=== PATIENT | female | born 1970 | race Caucasian/White ===

== ENCOUNTER → 2019-12-04 | Outpatient (CLI) | payer OTHER ==
[~2019-12-04] MED LIST: ALPR.5 PO
== END ==
LOC: LAB 15:39 → LAB SHORT 15:39
DX: J02.9 Acute pharyngitis, unspecified (principal)
CPT/HCPCS: 87081

== ENCOUNTER 2020-06-30 08:35 | Day surgery (SDC) | payer OTHER ==
[~2020-06-30] VITALS: Ht 160 cm; Wt 73.8 kg
== END 2020-06-30 10:31 | disposition home or self-care (01) ==
LOC: ORSCSDS 08:35
PROVIDERS: Student in an Organized Health Care Education/Training Program
PROC: 0DBN8ZX Excision of Sigmoid Colon, Via Natural or Artificial Opening Endoscopic, Diagnostic (ICD-10-PCS; principal; 2020-06-30 09:45)
PROC: 0DBK8ZX Excision of Ascending Colon, Via Natural or Artificial Opening Endoscopic, Diagnostic (ICD-10-PCS; principal; 2020-06-30 09:45)
PROC: 0DBE8ZX Excision of Large Intestine, Via Natural or Artificial Opening Endoscopic, Diagnostic (ICD-10-PCS; principal; 2020-06-30 09:45)
DX: R19.4 Change in bowel habit (principal); R10.84 Generalized abdominal pain; K52.9 Noninfective gastroenteritis and colitis, unspecified; K63.89 Other specified diseases of intestine; D12.2 Benign neoplasm of ascending colon; K63.5 Polyp of colon; K64.8 Other hemorrhoids; Z87.891 Personal history of nicotine dependence; Z79.899 Other long term (current) drug therapy
CPT/HCPCS: 88305; J2704; J7120

== ENCOUNTER 2022-04-25 11:10 | Emergency (ER) | payer OTHER ==
[~2022-04-25] VITALS: Ht 160 cm; Wt 79.4 kg
[2022-04-25 12:05] LABS: BASOPHILS ABSOLUTE AUTO 0.03 K/mm3 (0.00-0.23); BASOPHILS PERCENT AUTO 0 % (0-2); EOSINOPHILS ABSOLUTE AUTO 0.13 K/mm3 (0.00-0.68); EOSINOPHILS PERCENT AUTO 1 % (0-6); Hematocrit 41.9 % (33.0-51.0); Hemoglobin 14.3 g/dL (11.5-16.0); IMMATURE GRAN ABSOLUTE AUTO 0.05 K/mm3 (0.00-0.10); IMMATURE GRAN PERCENT AUTO 0 % (0-1); LYMPHOCYTES ABSOLUTE AUTO 2.86 K/mm3 (0.84-5.20); LYMPHOCYTES PERCENT AUTO 23 % (21-46); MONOCYTES ABSOLUTE AUTO 0.46 K/mm3 (0.16-1.47); MONOCYTES PERCENT AUTO 4 % (4-13); Mean Corpuscular HGB 31.4 pg (26.0-34.0); Mean Corpuscular HGB Conc 34.1 g/dL (31.5-36.5); Mean Corpuscular Volume 92 fL (80-100); Mean Platelet Volume 9.1 fL (9.1-12.4); NEUTROPHILS PERCENT AUTO 71 % (41-73); Platelet Count 251 K/mm3 (150-400); RDW Coefficient Variation 12.3 % (11.7-14.2); RDW Standard Deviation 41.8 fL (35.1-46.3); Red Blood Cell Count 4.55 M/mm3 (3.80-5.20); White Blood Cell Count 12.23 K/mm3 (4.00-11.30)
[2022-04-25 12:22] LABS: Bilirubin, Total 0.5 mg/dL (0.1-1.0); Bun/Creatinine Ratio 24.9 (12.0-20.0); Calcium, Blood 9.6 mg/dL (8.5-10.1); Creatinine, Blood 0.68 mg/dL (0.40-1.00); Potassium, Blood 3.7 mmol/L (3.5-5.5)
== END 2022-04-25 14:40 | disposition left against medical advice (07) ==
LOC: ER 11:10
PROVIDERS: Physician Assistant
DX: R11.2 Nausea with vomiting, unspecified (principal); Z79.899 Other long term (current) drug therapy; Z53.21 Procedure and treatment not carried out due to patient leaving prior to being seen by health care provider
CPT/HCPCS: 36415; 80053; 85025; J2405

== ENCOUNTER 2023-03-23 09:31 | Day surgery (SDC) | payer OTHER ==
[~2023-03-23] VITALS: Ht 160 cm; Wt 69.2 kg
--- NOTE | 2023-03-23 11:30 | NUR ---
03/23/23 1130 Gala Jimenez I&O CATH AT BEGINNING OF PROCEDURE BY DEEJAY,RN 75ML OUTPUT
--- NOTE | 2023-03-23 12:30 | NUR ---
03/23/23 1230 SARA CORTÉS IV REMOVED BY RN EJP,CU[place]HTEM[place] INTACT, SITE WNL, PT TOLERATED PROCEDURE WELL.
[2023-03-23 12:34] VITALS: BP 116/66
== END 2023-03-23 12:36 | disposition home or self-care (01) ==
LOC: ORSCSDS 09:31
PROVIDERS: Obstetrics & Gynecology
PROC: 0UBC7ZX Excision of Cervix, Via Natural or Artificial Opening, Diagnostic (ICD-10-PCS; principal; 2023-03-23 11:00)
DX: D06.0 Carcinoma in situ of endocervix (principal)
CPT/HCPCS: J0171; J0690; J1100; J2250; J2405; J2704; J2795; J3010; J7120

== ENCOUNTER 2024-01-15 06:25 | Day surgery (SDC) | payer OTHER ==
[2024-01-15] VITALS (20 sets, daily range): BP systolic 100–133; BP diastolic 64–113
[~2024-01-15] VITALS: Ht 152.4 cm; Wt 77.1 kg
[~2024-01-15 06:25] MED LIST changes: +Phentermine HCl15 MG PO
[2024-01-15] MEDS ORDERED: Lactated Ringer's 1,000 ML IV SCH ×2 (06:30→09:50)
--- NOTE | 2024-01-15 07:08 | NUR ---
Ambulatory in Day Surgery History, Chart, Medications and Allergies reviewed before start of procedure.Patient confirms NPO status and agrees with scheduled surgery. Patient reports completing Chlorhexadine shower X2 prior to admission to hospital. PATIENT REPORTS NO PERIOD FOR OVER 5 YEARS, NO CHANCE OF .
[2024-01-15] MEDS ORDERED: CeFAZolin Sodium 2,000 MG in NS 100 ML IV SCH (07:20)
[2024-01-15] MEDS ORDERED: FentaNYL Citrate 50 MCG/ML 5 ML Injection ONE (07:23)
[2024-01-15] MEDS ORDERED: propofoL 20 ML IV ONE (07:23)
[2024-01-15] MEDS ORDERED: Lidocaine HCl 2% 20 ML MDV ONE (07:23)
[2024-01-15] MEDS ORDERED: Bupivacaine 0.5% HCl 5 MG/ML 30MLVIAL ONE (07:52)
[2024-01-15] MEDS ORDERED: Dexamethasone Sod Phos 10 MG/ML 1ML VIAL ONE (07:54)
[2024-01-15] MEDS ORDERED: ePHEDrine Sulfate 50 MG/ML 1ML Injection ONE (08:15)
[2024-01-15] MEDS ORDERED: Sugammadex Sodium 200 MG/2ML SDV (100 MG/ML) ONE (09:18)
[2024-01-15] MEDS ORDERED: Ondansetron HCl 2 MG / ML 2ML Vial ONE (09:18)
[2024-01-15] MEDS ORDERED: Naloxone HCl 0.4MG / ML 1ML Vial ONE (09:41)
[2024-01-15] MEDS ORDERED: HYDROmorphone HCl/Pf 1MG SYR IV PRN (09:50)
[2024-01-15] MEDS ORDERED: DiphenhydrAMINE HCL 25 MG Cap PO PRN (09:50)
[2024-01-15] MEDS ORDERED: Metoclopramide HCl 10 MG Tab PO PRN (09:50)
[2024-01-15] MEDS ORDERED: Metoclopramide HCl 5MG / ML 2ML Vial IV PRN (09:50)
[2024-01-15] MEDS ORDERED: Simethicone 80 MG Chew PO PRN (09:50)
[2024-01-15] MEDS ORDERED: Naloxone HCl 0.4MG / ML 1ML Vial IV PRN (09:55)
[2024-01-15] MEDS ORDERED: Ondansetron 4 MG TAB PO PRN (09:55)
[2024-01-15] MEDS ORDERED: Acetaminophen 500 MG Tab PO PRN (09:55)
[2024-01-15] MEDS ORDERED: OxyCODONE HCL 5 MG TAB PO PRN (09:55)
[2024-01-15] MEDS ORDERED: Ondansetron HCl 2 MG / ML 2ML Vial IV PRN (09:55)
[2024-01-15] MEDS ORDERED: FentaNYL Citrate 50 MCG/ML 2 ML Injection ONE (09:59)
[2024-01-15] MEDS ORDERED: Ketorolac Tromethamine 30mg Vial ONE (09:59)
[2024-01-15] MEDS ORDERED: HYDROmorphone HCl/Pf 1MG SYR ONE ×2 (10:11→10:31)
--- NOTE | 2024-01-15 11:19 | NUR ---
pt arrived to unit from pacu RATES PAIN /10. PLACED KPAD TO ABDOMEN. DENIES N/V, SOB, OR N/T. VSS. CALL LIGHT IN REACH.
[2024-01-15] MEDS ORDERED: Ketorolac Tromethamine 30mg Vial IV SCH (12:00)
[2024-01-15] MEDS ORDERED: ACET500 PO (15:01)
[2024-01-15] MEDS ORDERED: OXAYDO5 M1 PO (15:02)
[2024-01-15] MEDS ORDERED: IBUP800 PO (15:02)
--- NOTE | 2024-01-15 16:36 | NUR ---
DISCHARGING PT PASSED VOIDING TRIAL, PAIN CONTROLLED ON PO PAIN MEDS, PT HAS AMBULATED AND IS TOLERATING PO INTAKE. REVIEWED DC INSTRUCTIONS W/PT; VERBALIZED UNDERSTANDING. PT SIGNED DC INSTRUCTIONS. DRESSED AND WAITING FOR RIDE.
--- NOTE | 2024-01-15 16:46 | NUR ---
DISCHARGED PT LEFT UNIT IN WC W/POSSESSIONS AND DC PAPERWORK TO MEET RIDE OUTSIDE.
== END 2024-01-15 16:47 | disposition home or self-care (01) ==
LOC: ORSCMMR 06:25 → ORD 07:30 → SURS 10:58 → ORSCMMR 16:47
PROVIDERS: Obstetrics & Gynecology
PROC: 0UT7FZZ Resection of Bilateral Fallopian Tubes, Via Natural or Artificial Opening With Percutaneous Endoscopic Assistance (ICD-10-PCS; principal; 2024-01-15 07:30)
PROC: 0UT9FZZ Resection of Uterus, Via Natural or Artificial Opening With Percutaneous Endoscopic Assistance (ICD-10-PCS; principal; 2024-01-15 07:30)
PROC: 0DNW4ZZ Release Peritoneum, Percutaneous Endoscopic Approach (ICD-10-PCS; principal; 2024-01-15 07:30)
PROC: 0UT1FZZ Resection of Left Ovary, Via Natural or Artificial Opening With Percutaneous Endoscopic Assistance (ICD-10-PCS; principal; 2024-01-15 07:30)
DX: D06.9 Carcinoma in situ of cervix, unspecified (principal); N88.2 Stricture and stenosis of cervix uteri; D26.9 Other benign neoplasm of uterus, unspecified; N83.8 Other noninflammatory disorders of ovary, fallopian tube and broad ligament; N73.6 Female pelvic peritoneal adhesions (postinfective); Z87.891 Personal history of nicotine dependence; Z79.899 Other long term (current) drug therapy
CPT/HCPCS: 86850; 86900; 86901; 88307; A9270; J0690; J1100; J1170; J1885; J2310; J2405; J2704; J3010; J7120

== ENCOUNTER 2025-07-15 08:22 | Day surgery (SDC) | payer OTHER ==
[~2025-07-15] VITALS: Ht 160 cm; Wt 77.7 kg
[~2025-07-15 08:22] MED LIST changes: +ACET500 PO; +IBUP800 PO; +OXAYDO5 M1 PO
[2025-07-15 10:38] VITALS: BP 113/75
== END 2025-07-15 10:38 | disposition home or self-care (01) ==
LOC: ORSCSDS 08:22
PROVIDERS: Specialist
PROC: 0DBE8ZX Excision of Large Intestine, Via Natural or Artificial Opening Endoscopic, Diagnostic (ICD-10-PCS; principal; 2025-07-15 09:45)
PROC: 0DBH8ZX Excision of Cecum, Via Natural or Artificial Opening Endoscopic, Diagnostic (ICD-10-PCS; principal; 2025-07-15 09:45)
DX: R19.4 Change in bowel habit (principal); Z86.0100 Personal history of colon polyps, unspecified; K63.5 Polyp of colon; K57.30 Diverticulosis of large intestine without perforation or abscess without bleeding; K64.4 Residual hemorrhoidal skin tags; K64.8 Other hemorrhoids
CPT/HCPCS: 88305; J2704; J7120